=== PATIENT | female | born 1970 | race Caucasian/White ===

== ENCOUNTER 2018-04-25 20:32 | Inpatient (IN) | payer MEDICAID ==
[~2018-04-25] VITALS: Ht 157.5 cm; Wt 95.7 kg
[2018-04-25 21:19] LABS: UA SPECIFIC GRAVITY 1.015 (1.005-1.035); microscopic required? YES; urine erythrocyte 2+ (NEGATIVE)
[2018-04-25 21:30] LABS: PLATELET COUNT 478 x10^3mcL (130-400); RED CELL DISTRIBUTION WIDTH 22.9 % (11.5-14.5)
[2018-04-25 21:34] LABS: CALCIUM 7.5 mg/dL (8.5-10.1); CARBON DIOXIDE 22.4 mmol/L (21-32); CHLORIDE SERUM 103 mmol/L (98-107); CREATININE SERUM 0.9 mg/dL (0.6-1.0); GFR1 > 60 mL/min; GLUCOSE SERUM 149 mg/dL (74-106); POTASSIUM SERUM 4.6 mmol/L (3.5-5.1); SODIUM SERUM 133 mmol/L (136-145)
[2018-04-25 21:38] LABS: ALKALINE PHOSPHATASE 77 U/L (46-116); ALT/SGPT 13 U/L (14-59); AST/SGOT 16 U/L (15-37); BILIRUBIN TOTAL 0.1 mg/dL (0.20-1.00); LIPASE 98 IU/L (73-393)
[2018-04-25 21:49] LABS: ALBUMIN 1.9 g/dL (3.4-5.0); TOTAL PROTEIN, SERUM 5.3 g/dL (6.4-8.2)
[2018-04-25] MEDS ORDERED: HYDROCHLOROTHIA25 MG PO (22:06)
[2018-04-25] MEDS ORDERED: METFORMIN HCL1000 MG PO (22:06)
[2018-04-25] MEDS ORDERED: NATURAL IRON65 MG PO (22:07)
[2018-04-25 22:08] LABS: BAND NEUTROPHIL 3 % (0-10); METAMYELOCTE 1 % (0-2); MONOCYTE 7 % (0-7); SEGMENTED NEUTROPHILS 75 % (37-75)
[2018-04-25 22:11] LABS: PLATELET MORPHOLOGY PLATELETS NORMAL; ovalocyte/elliptocyte 1+; rbc morphology (normal/abnorm) ABNORMAL (NORMAL)
[2018-04-25 22:26] LABS: AMPHETAMINE QUAL UR NONE DETECTED (See below); HDL CHOLESTEROL 39 mg/dL (40-60); MAGNESIUM 2.4 mg/dL (1.8-2.4); PHOSPHOROUS 4.4 mg/dL (2.5-4.9)
[2018-04-25 22:31] LABS: CHOLESTEROL 204 mg/dL (<200); CHOLESTEROL/HDL RATIO 5.2; TRIGLYCERIDES 434 mg/dL (<150)
[2018-04-25 22:35] LABS: T3 TOTAL 1.3 ng/mL
[2018-04-25 22:53] LABS: FREE T4 1.08 ng/dL (0.76-1.46); FREE THYROXINE INDEX 2.7 ug/dL (1.4-4.5); T4(THYROXINE) 7.8 ug/dL (4.7-13.3)
[2018-04-25 23:30] VITALS: BP 160/120; BP 160/73
[2018-04-26] VITALS (13 sets, daily range): BP systolic 122–184; BP diastolic 65–93
[2018-04-26] MEDS ORDERED: HYDROCHLOROTHIA25 MG PO (02:57)
[2018-04-26 07:46] LABS: CALCIUM 7.3 mg/dL (8.5-10.1); CHLORIDE SERUM 108 mmol/L (98-107); GFR1 > 60 mL/min; GLUCOSE SERUM 127 mg/dL (74-106); IRON 32 ug/dL (50-170); POTASSIUM SERUM 4.6 mmol/L (3.5-5.1); SODIUM SERUM 137 mmol/L (136-145); TOTAL IRON BINDING CAPACITY 229 ug/dL (250-450)
[2018-04-26 08:09] LABS: BASOPHIL % 0.5 % (0-2); PLATELET COUNT 383 x10^3mcL (130-400)
[2018-04-26 08:14] LABS: RED CELL DISTRIBUTION WIDTH 20.9 % (11.5-14.5)
[2018-04-26 08:37] LABS: rbc morphology (normal/abnorm) ABNORMAL (NORMAL)
[2018-04-26 10:19] LABS: RED BLOOD CELLS 1.99 M/mm3 (4.10-5.10)
[2018-04-26 23:56] LABS: BASOPHIL % 0.5 % (0-2); PLATELET COUNT 379 x10^3mcL (130-400)
[2018-04-26 23:58] LABS: RED CELL DISTRIBUTION WIDTH 18.2 % (11.5-14.5)
[2018-04-27] VITALS (11 sets, daily range): BP systolic 139–188; BP diastolic 76–87
[2018-04-27 06:57] LABS: BASOPHIL % 0.6 % (0-2); PLATELET COUNT 380 x10^3mcL (130-400)
[2018-04-27 07:06] LABS: RED CELL DISTRIBUTION WIDTH 18.1 % (11.5-14.5)
[2018-04-27 07:12] LABS: CARBON DIOXIDE 25.3 mmol/L (21-32); CHLORIDE SERUM 109 mmol/L (98-107); CREATININE SERUM 0.9 mg/dL (0.6-1.0); GFR1 > 60 mL/min; GLUCOSE SERUM 131 mg/dL (74-106); POTASSIUM SERUM 4.2 mmol/L (3.5-5.1); SODIUM SERUM 139 mmol/L (136-145)
[2018-04-27] MEDS ORDERED: COLACE100 MG PO (12:46)
[2018-04-27] MEDS ORDERED: ZESTRIL5 MG PO (17:03)
== END 2018-04-27 22:01 | disposition home or self-care (01) | DRG 532 ==
LOC: ED 20:32 → DU 21:41
PROVIDERS: Emergency Medicine; Family Medicine
PROC: 30233N1 Transfusion of Nonautologous Red Blood Cells into Peripheral Vein, Percutaneous Approach (ICD-10-PCS; principal; 2018-04-26)
DX: D25.9 Leiomyoma of uterus, unspecified (principal); N17.0 Acute kidney failure with tubular necrosis; E43 Unspecified severe protein-calorie malnutrition; E87.1 Hypo-osmolality and hyponatremia; D50.0 Iron deficiency anemia secondary to blood loss (chronic); E11.9 Type 2 diabetes mellitus without complications; I10 Essential (primary) hypertension; I16.0 Hypertensive urgency; R60.9 Edema, unspecified; R80.9 Proteinuria, unspecified; Z79.84 Long term (current) use of oral hypoglycemic drugs; Z86.718 Personal history of other venous thrombosis and embolism; Z98.51 Tubal ligation status
CPT/HCPCS: 83880; 84439; C9113; J1940; J3490; J7030; J7040; P9016; Q0092; Q0163

== ENCOUNTER 2018-05-16 21:31 | Emergency (ER) | payer MEDICAID ==
[~2018-05-16] VITALS: Ht 157.5 cm; Wt 94.1 kg
[~2018-05-16 21:31] MED LIST: COLACE100 MG PO; HYDROCHLOROTHIA25 MG PO; METFORMIN HCL1000 MG PO; NATURAL IRON65 MG PO; ZESTRIL5 MG PO
[2018-05-16 21:36] VITALS: Ht 157.5 cm; Wt 94.1 kg
[2018-05-16 23:01] VITALS: BP 160/91
== END 2018-05-16 23:01 | disposition home or self-care (01) ==
LOC: ED 21:31
DX: I10 Essential (primary) hypertension (principal); F43.0 Acute stress reaction; E78.00 Pure hypercholesterolemia, unspecified
CPT/HCPCS: J3490

== ENCOUNTER 2018-06-10 18:47 | Inpatient (IN) | payer MEDICAID ==
[~2018-06-10] VITALS: Ht 157.5 cm; Wt 94.8 kg
[2018-06-10 19:07] VITALS: Ht 157.5 cm; Wt 94.8 kg
[2018-06-10 20:36] LABS: PLATELET COUNT 370 x10^3mcL (130-400)
[2018-06-10 20:46] LABS: BILIRUBIN TOTAL 0.1 mg/dL (0.20-1.00); CALCIUM 7.9 mg/dL (8.5-10.1); CARBON DIOXIDE 23.5 mmol/L (21-32); CREATININE SERUM 1.2 mg/dL (0.6-1.0); POTASSIUM SERUM 3.5 mmol/L (3.5-5.1)
[2018-06-10 20:48] LABS: ALBUMIN 1.7 g/dL (3.4-5.0); TOTAL PROTEIN, SERUM 4.8 g/dL (6.4-8.2)
[2018-06-10 21:09] LABS: RED CELL DISTRIBUTION WIDTH 15.8 % (11.5-14.5)
[2018-06-10 21:17] LABS: BAND NEUTROPHIL 0 % (0-10); BASOPHIL 0 % (0-2); MONOCYTE 7 % (0-7); SEGMENTED NEUTROPHILS 76 % (37-75); rbc morphology (normal/abnorm) ABNORMAL (NORMAL)
[2018-06-10 21:56] LABS: microscopic required? YES; urine erythrocyte 3+ (NEGATIVE)
[2018-06-10 22:19] LABS: AMPHETAMINE QUAL UR NONE DETECTED (See below)
[2018-06-10 22:35] LABS: CHOLESTEROL/HDL RATIO 3.8; MAGNESIUM 2.2 mg/dL (1.8-2.4); PHOSPHOROUS 6.6 mg/dL (2.5-4.9); T3 TOTAL 1.11 ng/mL
[2018-06-10 22:42] LABS: FREE T4 1.07 ng/dL (0.76-1.46); FREE THYROXINE INDEX 2.7 ug/dL (1.4-4.5); T4(THYROXINE) 7.6 ug/dL (4.7-13.3)
[2018-06-10 22:49] VITALS: BP 180/81
[2018-06-11 04:59] VITALS: BP 168/75
[2018-06-11 06:09] LABS: BASOPHIL % 0.7 % (0-2); PLATELET COUNT 354 x10^3mcL (130-400); RED CELL DISTRIBUTION WIDTH 13.6 % (11.5-14.5)
[2018-06-11 06:20] LABS: CALCIUM 7.9 mg/dL (8.5-10.1); CARBON DIOXIDE 22.2 mmol/L (21-32); CHLORIDE SERUM 98 mmol/L (98-107); GFR1 > 60 mL/min; GLUCOSE SERUM 138 mg/dL (74-106); MAGNESIUM 2.3 mg/dL (1.8-2.4); PHOSPHOROUS 6.3 mg/dL (2.5-4.9); POTASSIUM SERUM 3.7 mmol/L (3.5-5.1); SODIUM SERUM 128 mmol/L (136-145)
[2018-06-11 08:05] VITALS: BP 154/82
[2018-06-11 12:01] VITALS: BP 147/79
[2018-06-11 16:41] VITALS: BP 101/60
[2018-06-11 16:43] VITALS: BP 150/67
[2018-06-11 21:20] VITALS: BP 160/79
[2018-06-11 23:18] LABS: BASOPHIL % 0.5 % (0-2); PLATELET COUNT 355 x10^3mcL (130-400)
[2018-06-11 23:27] LABS: RED CELL DISTRIBUTION WIDTH 14.8 % (11.5-14.5)
[2018-06-12 05:06] VITALS: BP 152/67
[2018-06-12 06:36] LABS: CALCIUM 7.6 mg/dL (8.5-10.1); CARBON DIOXIDE 22.2 mmol/L (21-32); CHLORIDE SERUM 107 mmol/L (98-107); CREATININE SERUM 0.9 mg/dL (0.6-1.0); GFR1 > 60 mL/min; GLUCOSE SERUM 134 mg/dL (74-106); MAGNESIUM 1.9 mg/dL (1.8-2.4); PHOSPHOROUS 4.5 mg/dL (2.5-4.9); POTASSIUM SERUM 3.8 mmol/L (3.5-5.1); SODIUM SERUM 137 mmol/L (136-145)
[2018-06-12 06:39] LABS: BASOPHIL % 0.6 % (0-2); PLATELET COUNT 345 x10^3mcL (130-400)
[2018-06-12 07:06] LABS: RED CELL DISTRIBUTION WIDTH 15.2 % (11.5-14.5)
[2018-06-12 08:00] VITALS: BP 149/70
[2018-06-12 12:11] VITALS: BP 174/82
[2018-06-12 16:29] VITALS: BP 174/66
[2018-06-12 20:05] VITALS: BP 163/69
[2018-06-12 20:14] LABS: BASOPHIL % 0.5 % (0-2); PLATELET COUNT 360 x10^3mcL (130-400)
[2018-06-12 22:18] VITALS: BP 145/72
[2018-06-13] VITALS (7 sets, daily range): BP systolic 126–184; BP diastolic 75–87
[2018-06-13 03:51] LABS: BASOPHIL % 0.9 % (0-2); PLATELET COUNT 402 x10^3mcL (130-400); RED CELL DISTRIBUTION WIDTH 14.4 % (11.5-14.5)
[2018-06-13 04:08] LABS: CARBON DIOXIDE 26.1 mmol/L (21-32); CHLORIDE SERUM 103 mmol/L (98-107); GFR1 > 60 mL/min; GLUCOSE SERUM 137 mg/dL (74-106); MAGNESIUM 1.7 mg/dL (1.8-2.4); PHOSPHOROUS 4.8 mg/dL (2.5-4.9); POTASSIUM SERUM 3.4 mmol/L (3.5-5.1); SODIUM SERUM 128 mmol/L (136-145)
[2018-06-14] VITALS (7 sets, daily range): BP systolic 134–195; BP diastolic 76–93
[2018-06-14 06:21] LABS: CHLORIDE SERUM 108 mmol/L (98-107); GFR1 > 60 mL/min; GLUCOSE SERUM 133 mg/dL (74-106); MAGNESIUM 1.9 mg/dL (1.8-2.4); PHOSPHOROUS 4.9 mg/dL (2.5-4.9); POTASSIUM SERUM 3.6 mmol/L (3.5-5.1); SODIUM SERUM 140 mmol/L (136-145)
[2018-06-14 06:27] LABS: BASOPHIL % 0.4 % (0-2); PLATELET COUNT 387 x10^3mcL (130-400)
[2018-06-14 06:36] LABS: RED CELL DISTRIBUTION WIDTH 15.4 % (11.5-14.5)
[2018-06-15 05:48] VITALS: BP 135/65
[2018-06-15 08:25] VITALS: BP 138/60
[2018-06-15 09:41] LABS: CALCIUM 8.3 mg/dL (8.5-10.1); CARBON DIOXIDE 22.5 mmol/L (21-32); CREATININE SERUM 1.1 mg/dL (0.6-1.0); POTASSIUM SERUM 4.1 mmol/L (3.5-5.1)
[2018-06-15 09:59] LABS: BASOPHIL % 0.7 % (0-2)
[2018-06-15 10:09] LABS: PLATELET COUNT 455 x10^3mcL (130-400); RED CELL DISTRIBUTION WIDTH 16.1 % (11.5-14.5)
[2018-06-15] MEDS ORDERED: LIPI10 PO (13:09)
[2018-06-15] MEDS ORDERED: ZES20 PO (13:09)
[2018-06-15 13:11] VITALS: BP 178/93
[2018-06-15] MEDS ORDERED: COUMADIN3 MG PO (13:11)
[2018-06-15 14:35] VITALS: BP 151/72
[2018-06-15 14:44] VITALS: BP 151/72
== END 2018-06-15 15:51 | disposition home or self-care (01) | DRG 532 ==
LOC: ED 18:47 → DU 21:25
PROVIDERS: Emergency Medicine; Family Medicine; Internal Medicine
DX: N92.1 Excessive and frequent menstruation with irregular cycle (principal); N17.0 Acute kidney failure with tubular necrosis; E43 Unspecified severe protein-calorie malnutrition; I82.412 Acute embolism and thrombosis of left femoral vein; E83.39 Other disorders of phosphorus metabolism; D68.69 Other thrombophilia; D62 Acute posthemorrhagic anemia; D25.9 Leiomyoma of uterus, unspecified; E87.1 Hypo-osmolality and hyponatremia; R80.9 Proteinuria, unspecified; E11.9 Type 2 diabetes mellitus without complications; I10 Essential (primary) hypertension; E78.5 Hyperlipidemia, unspecified; Z86.718 Personal history of other venous thrombosis and embolism; Z79.84 Long term (current) use of oral hypoglycemic drugs
CPT/HCPCS: 82962; 83880; 84439; J1644; J1650; J3490; J7030; J7040; J7050; P9016; Q0092; Q0163

== ENCOUNTER 2018-08-06 21:23 | Inpatient (IN) | payer MEDICAID ==
[~2018-08-06] VITALS: Ht 157.5 cm; Wt 95.7 kg
[~2018-08-06 21:23] MED LIST changes: +COUMADIN3 MG PO; +LIPI10 PO; +ZES20 PO
[2018-08-06 21:25] VITALS: Ht 157.5 cm; Wt 95.7 kg
[2018-08-06 22:14] LABS: BASOPHIL % 0.3 % (0-2); PLATELET COUNT 397 x10^3mcL (130-400)
[2018-08-06 22:24] LABS: RED CELL DISTRIBUTION WIDTH 15.2 % (11.5-14.5)
[2018-08-06 22:28] LABS: CALCIUM 8.1 mg/dL (8.5-10.1); CARBON DIOXIDE 21.2 mmol/L (21-32); CREATININE SERUM 1.1 mg/dL (0.6-1.0); POTASSIUM SERUM 3.8 mmol/L (3.5-5.1)
[2018-08-06 22:33] LABS: BILIRUBIN TOTAL 0.1 mg/dL (0.20-1.00)
[2018-08-06 22:36] LABS: ALBUMIN 1.9 g/dL (3.4-5.0); TOTAL PROTEIN, SERUM 5.3 g/dL (6.4-8.2)
[2018-08-07] VITALS (8 sets, daily range): BP systolic 126–155; BP diastolic 48–80
[2018-08-07] MEDS ORDERED: LISINOPRIL40 MG PO (00:23)
[2018-08-07] MEDS ORDERED: DOK100 MG PO (00:24)
[2018-08-07] MEDS ORDERED: LIPI10 PO (00:24)
[2018-08-07] MEDS ORDERED: HYDROCHLOROTHIA50 MG PO (00:24)
[2018-08-07] MEDS ORDERED: METOPROLOL TART25 M1 PO (00:25)
[2018-08-07] MEDS ORDERED: METFORMIN HCL1000 MG PO (00:25)
[2018-08-07] MEDS ORDERED: PROVERA10 MG PO (00:26)
[2018-08-07] MEDS ORDERED: COUMADIN6 MG PO (00:26)
[2018-08-07] MEDS ORDERED: NOR10 PO (00:27)
[2018-08-07 00:55] LABS: CHOLESTEROL/HDL RATIO 5.2; MAGNESIUM 1.9 mg/dL (1.8-2.4); PHOSPHOROUS 4.7 mg/dL (2.5-4.9)
[2018-08-07 01:03] LABS: FREE T4 1.27 ng/dL (0.76-1.46); FREE THYROXINE INDEX 3.6 ug/dL (1.4-4.5); T4(THYROXINE) 10.2 ug/dL (4.7-13.3)
[2018-08-07 01:16] LABS: microscopic required? YES; urine erythrocyte 3+ (NEGATIVE)
[2018-08-07 01:24] LABS: AMPHETAMINE QUAL UR NONE DETECTED (See below)
[2018-08-07 01:43] LABS: T3 TOTAL 1.05 ng/mL
[2018-08-07 06:55] LABS: CALCIUM 8.1 mg/dL (8.5-10.1); CARBON DIOXIDE 21.2 mmol/L (21-32); CREATININE SERUM 1.1 mg/dL (0.6-1.0); POTASSIUM SERUM 4.3 mmol/L (3.5-5.1)
[2018-08-07 07:15] LABS: BASOPHIL % 0.4 % (0-2); PLATELET COUNT 341 x10^3mcL (130-400)
[2018-08-07 07:18] LABS: RED CELL DISTRIBUTION WIDTH 15.1 % (11.5-14.5)
[2018-08-07 07:57] LABS: rbc morphology (normal/abnorm) ABNORMAL (NORMAL)
[2018-08-07 23:35] LABS: BASOPHIL % 0.3 % (0-2); PLATELET COUNT 331 x10^3mcL (130-400)
[2018-08-07 23:42] LABS: RED CELL DISTRIBUTION WIDTH 15.4 % (11.5-14.5)
[2018-08-08 05:29] VITALS: BP 111/51
[2018-08-08 06:31] LABS: BASOPHIL % 0.2 % (0-2); PLATELET COUNT 332 x10^3mcL (130-400)
[2018-08-08 06:57] LABS: CALCIUM 7.9 mg/dL (8.5-10.1); CARBON DIOXIDE 22.9 mmol/L (21-32); CHLORIDE SERUM 108 mmol/L (98-107); GFR1 > 60 mL/min; GLUCOSE SERUM 137 mg/dL (74-106); MAGNESIUM 1.8 mg/dL (1.8-2.4); PHOSPHOROUS 4.8 mg/dL (2.5-4.9); POTASSIUM SERUM 4.2 mmol/L (3.5-5.1); SODIUM SERUM 141 mmol/L (136-145)
[2018-08-08 07:01] LABS: RED CELL DISTRIBUTION WIDTH 15.6 % (11.5-14.5)
[2018-08-08 07:52] VITALS: BP 134/97
[2018-08-08 11:59] VITALS: BP 141/74
[2018-08-08 12:51] VITALS: BP 141/74
== END 2018-08-08 15:24 | disposition home or self-care (01) | DRG 532 ==
LOC: ED 21:23 → DU 08-07 00:10
PROVIDERS: Emergency Medicine; Internal Medicine
PROC: 30233N1 Transfusion of Nonautologous Red Blood Cells into Peripheral Vein, Percutaneous Approach (ICD-10-PCS; principal; 2018-08-07)
DX: N93.8 Other specified abnormal uterine and vaginal bleeding (principal); N17.0 Acute kidney failure with tubular necrosis; E43 Unspecified severe protein-calorie malnutrition; D62 Acute posthemorrhagic anemia; E87.1 Hypo-osmolality and hyponatremia; E11.65 Type 2 diabetes mellitus with hyperglycemia; D25.9 Leiomyoma of uterus, unspecified; I16.0 Hypertensive urgency; R80.9 Proteinuria, unspecified; D72.829 Elevated white blood cell count, unspecified; E78.5 Hyperlipidemia, unspecified; Z68.35 Body mass index [BMI] 35.0-35.9, adult; Z79.01 Long term (current) use of anticoagulants; Z79.84 Long term (current) use of oral hypoglycemic drugs; Z86.718 Personal history of other venous thrombosis and embolism
CPT/HCPCS: 82962; 83880; 84439; 90658; J7030; J7050; P9016; Q0092; Q0163

== ENCOUNTER 2018-08-22 02:59 | Emergency (ER) | payer MEDICAID ==
[~2018-08-22] VITALS: Ht 154.9 cm; Wt 91.2 kg
[~2018-08-22 02:59] MED LIST changes: +COUMADIN6 MG PO; +DOK100 MG PO; +HYDROCHLOROTHIA50 MG PO; +LISINOPRIL40 MG PO; +METOPROLOL TART25 M1 PO; +NOR10 PO; +PROVERA10 MG PO
[2018-08-22 03:11] VITALS: Ht 154.9 cm; Wt 91.2 kg
[2018-08-22 04:11] LABS: CALCIUM 8.5 mg/dL (8.5-10.1); CARBON DIOXIDE 24.1 mmol/L (21-32); CREATININE SERUM 1.2 mg/dL (0.6-1.0); POTASSIUM SERUM 4.3 mmol/L (3.5-5.1)
[2018-08-22 04:14] LABS: BASOPHIL % 0.8 % (0-2)
[2018-08-22 04:15] LABS: PLATELET COUNT 671 x10^3mcL (130-400); RED CELL DISTRIBUTION WIDTH 14.6 % (11.5-14.5)
[2018-08-22 04:26] LABS: ALBUMIN 1.7 g/dL (3.4-5.0); TOTAL PROTEIN, SERUM 5.9 g/dL (6.4-8.2)
[2018-08-22 04:37] LABS: BILIRUBIN TOTAL 0.1 mg/dL (0.20-1.00)
[2018-08-22 05:18] VITALS: BP 160/82
== END 2018-08-22 05:18 | disposition home or self-care (01) ==
LOC: ED 02:59
PROVIDERS: Emergency Medicine
DX: I10 Essential (primary) hypertension (principal); F41.9 Anxiety disorder, unspecified; D50.9 Iron deficiency anemia, unspecified; E78.00 Pure hypercholesterolemia, unspecified; E11.9 Type 2 diabetes mellitus without complications
CPT/HCPCS: 36415

== ENCOUNTER 2019-05-02 22:09 | Inpatient (IN) | payer MEDICAID ==
[~2019-05-02] VITALS: Ht 157.5 cm; Wt 93.9 kg
[2019-05-02 22:14] VITALS: Ht 157.5 cm; Wt 93.9 kg
--- NOTE | 2019-05-02 22:16 | NUR ---
PT SENT TO LOBBY TO WAIT FOR AVAILABLE BED. NO DISTRESS NOTED AT THIS TIME. PT ALERT AND ORIENTED
--- NOTE | 2019-05-03 00:57 | NUR ---
PT PRESENTS TO ED WITH C/O BODY SWELLING; ON ASSESSMENT SWELLING OBSERVED TO BLE, +2 PITTING EDEMA TO BILATERAL LOWER LEGS, PEDAL PULSES STRONG AND PALPABLE; NO SWELLING OBSERVED TO UPPER EXTREMITIES. SKIN W/D/I; PT AAOX4, GCS 15, RESP E/U, ABDOMEN SOFT/NONTENDER/NONDISTENDED, PT MOVES ALL EXTREMITIES. PT APPEARS IN NO DISTRESS AT THIS TIME, FAMILY AT BEDSIDE.
[2019-05-03 01:03] LABS: BASOPHIL % 0.6 % (0-2)
[2019-05-03 01:04] LABS: PLATELET COUNT 494 x10^3mcL (130-400); RED CELL DISTRIBUTION WIDTH 14.8 % (11.5-14.5)
--- NOTE | 2019-05-03 01:09 | NUR ---
MEDICATED PER MD ORDERS - SEE EMAR
[2019-05-03 01:10] LABS: CALCIUM 8.2 mg/dL (8.5-10.1); CARBON DIOXIDE 22.7 mmol/L (21-32); CREATININE SERUM 1.8 mg/dL (0.6-1.0); POTASSIUM SERUM 4.8 mmol/L (3.5-5.1)
[2019-05-03 01:15] LABS: BILIRUBIN TOTAL 0.16 mg/dL (0.20-1.00)
[2019-05-03 01:16] LABS: ALBUMIN 1.6 g/dL (3.4-5.0); TOTAL PROTEIN, SERUM 5.8 g/dL (6.4-8.2)
[2019-05-03] MEDS ORDERED: GLUCOTROL10 MG PO (02:05)
[2019-05-03] MEDS ORDERED: LISINOPRIL20 MG PO (02:06)
[2019-05-03] MEDS ORDERED: METOPROLOL TAR100 MG PO (02:07)
--- NOTE | 2019-05-03 02:10 | NUR ---
PATIENT SITTING UPRIGHT ON GURNEY- BREATHING E/U. NAD NOTED. WILL CONTINUE TO MONITOR.
--- NOTE | 2019-05-03 03:10 | NUR ---
PROVIDED REPORT TO SEVERIANO DEVLIN- CARRIE FOR FURTHER CARE OF PATIENT.
[2019-05-03 04:24] VITALS: BP 152/79
--- NOTE | 2019-05-03 04:44 | NUR ---
RECIEVED PT FROM ED VIA GURNEY. PT ARRIVED WITH FAMILY. AMBULATED BY SELF FROM [facility] TO BED. ADMITTED FOR ACUTE CHF AND ACUTE KIDNEY DISEASE. A/OX4, CALM AND COOPERATIVE. BLE 2+ EDEMA NOTED. BREATHING EVEN AND UNLABORED ON RA. VSS. NO ACUTE DISTRESS NOTED AT THIS TIME. ALL QUESTIONS AND CONCERNS ADDRESSED. ORIENTED TO UNIT AND DEVICES. BED AT LOWEST POSTION. CALL LIGHT WITHIN REACH. WILL CONTINUE TO MONITOR.
[2019-05-03 05:49] LABS: BASOPHIL % 0.7 % (0-2)
[2019-05-03 06:02] LABS: PLATELET COUNT 455 x10^3mcL (130-400); RED CELL DISTRIBUTION WIDTH 15.8 % (11.5-14.5)
[2019-05-03 06:07] LABS: CALCIUM 8.1 mg/dL (8.5-10.1); CARBON DIOXIDE 22.7 mmol/L (21-32); CREATININE SERUM 1.7 mg/dL (0.6-1.0); MAGNESIUM 2.4 mg/dL (1.8-2.4); PHOSPHOROUS 4.6 mg/dL (2.5-4.9); POTASSIUM SERUM 3.9 mmol/L (3.5-5.1)
[2019-05-03 06:08] LABS: CHOLESTEROL/HDL RATIO 5.4
[2019-05-03 06:10] LABS: T3 TOTAL 1.2 ng/mL
[2019-05-03 06:13] LABS: FREE T4 1.05 ng/dL (0.76-1.46); FREE THYROXINE INDEX 3.3 ug/dL (1.4-4.5); T4(THYROXINE) 9.2 ug/dL (4.7-13.3)
--- NOTE | 2019-05-03 07:20 | NUR ---
RECEIVED BEDSIDE REPORT, PATIENT SLEEPING BUT EASILY ARROUSABLE, A/OX4 ABLE TO MAKE NEEDS KNOWN AND FOLLOW COMMANDS. DENIES HEADACHE OR CHEST PAIN. TELE [address] SR[address] LUNGS CTA, NO RESP DISTRESS ON RA. BREATHING E/U. GENERALIZED TRACE EDEMA NOTED W/ 2+ EDEMA TO BLE'S. PERIPHERAL PUSLES PALPABLE. BOWEL SOUNDS ACTIVE. DENIES DISCOMFORT WHEN VOIDING. SKIN INTACT. IV ACCESS TO LAC SITE WNL. CALL LIGHT WITHIN REACH, BOARD UPDATED.
[2019-05-03 08:39] VITALS: BP 149/84; BP 99/47
[2019-05-03 08:46] LABS: AMPHETAMINE QUAL UR NONE DETECTED (See below)
[2019-05-03 08:49] LABS: microscopic required? YES; urine erythrocyte 1+ (NEGATIVE)
--- NOTE | 2019-05-03 10:23 | NUR ---
PATIENT RESTING IN BED, SNORING. BREATHING E/U, NO SIGN OF ACUTE DISTRESS. WILL CONT TO MONITOR.
--- NOTE | 2019-05-03 10:30 | NUR ---
ECHOCARDIOGRAM PENDING-IN BATHROOM
--- NOTE | 2019-05-03 11:06 | NUR ---
ECHO IN PROGRESS AT BEDSIDE.
[2019-05-03 12:34] VITALS: BP 146/78
--- NOTE | 2019-05-03 14:11 | NUR ---
Discount pharmacy card and list to low cost medical clinics given to patient by Wilfred Garza.
--- NOTE | 2019-05-03 15:45 | NUR ---
PATIENT TRANSFERRED TO [facility]. TELE MONITOR RETURNED TO [facility].
[2019-05-03 16:53] VITALS: BP 124/67
--- NOTE | 2019-05-03 18:22 | NUR ---
PATIENT TOLERATED DINNER MEAL WELL. GENERALIZED TRACE SWELLING NOTED W/ REDUCED SWELLING TO BLE'S, 1+ EDEMA. PATIENT DENIES PAIN OR DISCOMFORT, RESP EVEN/UNLABORED. SCD'S IN PLACE. IV SITE WNL. NO OTHER SIGNIFICANT CHANGE IN CONDITION. WILL CONT TO MONITOR AND ENDORSE TO NOC NURSE.
--- NOTE | 2019-05-03 19:37 | NUR ---
PT. AWAKE, ALERT, SITTING UP IN BED. ORIENTED X4. DENIES HEADACHE OR DIZZINESS. BREATH SOUNDS CLEAR THROUGHOUT LUNG IYER, RESP. EVEN, UNLABORED. NO SOB NOTED. PT. ON RA. ABD. SOFT AND ROUND, BOWEL SOUNDS ACTIVE. DENIES ABD. PAIN, DENIES NAUSEA. IV ALBUMIN INFUSING, SITE INTACT. BLE W/ +2 EDEMA, NON-PITTING. PEDAL PULSES MODERATE. DENIES PAIN IN BLE. SON AT BEDSIDE. CALL LIGHT WITHIN REACH.
[2019-05-03 20:24] VITALS: BP 109/70
--- NOTE | 2019-05-04 00:33 | NUR ---
PT. APPEARS TO BE SLEEPING AT THIS TIME. EYES CLOSED. NO COMPLAINTS THUS FAR. IV SITE INTACT. CALL LIGHT WITHIN REACH.
--- NOTE | 2019-05-04 05:15 | NUR ---
PT. SLEPT WELL THROUGHOUT THE NIGHT. NO COMPLAINTS. IV SITE REMAINS INTACT. NO INCREASE IN EDEMA TO EXTREMITIES,BLE, NOTED. CALL LIGHT WITHIN REACH.
[2019-05-04 05:29] VITALS: BP 110/53
[2019-05-04 06:58] LABS: BASOPHIL % 0.7 % (0-2); PLATELET COUNT 355 x10^3mcL (130-400)
[2019-05-04 07:15] LABS: RED CELL DISTRIBUTION WIDTH 15.3 % (11.5-14.5)
[2019-05-04 07:16] LABS: CARBON DIOXIDE 22.9 mmol/L (21-32); CREATININE SERUM 1.8 mg/dL (0.6-1.0); MAGNESIUM 2.2 mg/dL (1.8-2.4); PHOSPHOROUS 4.9 mg/dL (2.5-4.9); POTASSIUM SERUM 3.8 mmol/L (3.5-5.1)
[2019-05-04 07:18] LABS: ALBUMIN 1.9 g/dL (3.4-5.0)
--- NOTE | 2019-05-04 07:34 | NUR ---
HGB 7.0, HCT 20. DR. MCNAMARA MADE AWARE. NO FURTHER ORDERS AT THIS TIME. NO S/S OF ACUTE DISTRESS. NO S/S OF BLEEDING AT THIS TIME. VS STABLE. PT SITTING UP EATING BREAKFAST. NO PAL. NO DIZZINESS. NO N/V. NO SOB ON ROOM AIR. NO CHEST PAIN. CALM/COOPERATIVE. MED SURG. IV WNL TO LAC, NO REDNESS, NO SWELLING, NO INFILTRATION TO SITE. SALINE LOCKED. BED IN LOW POSITION. CALL LIGHT WITHIN REACH. INSTRUCTED TO USE CALL LIGHT TO CALL FOR ASSISTANCE PRN. VERBALIZED UNDERSTANDING. WILL CONTINUE TO MONITOR.
[2019-05-04 08:01] VITALS: BP 110/62
[2019-05-04 08:56] LABS: IRON 29 ug/dL (50-170); TOTAL IRON BINDING CAPACITY 143 ug/dL (250-450)
--- NOTE | 2019-05-04 12:04 | NUR ---
PT LAYING IN BED. AA/OX4. NO COMPLAINT OF PAIN. NO SOB ON ROOM AIR. LUE NONPITTING SWELLING NOTED. ELEVATED WITH PILLOW. BLE ELEVATED WITH PILLOW. DENIES CHEST PAIN. CALM/COOPERATIVE. NO PAL. NO DIZZINESS. IV WNL, SALINE LOCKED. BED IN LOW POSITION. CALL LIGHT WITHIN REACH. BLOOD SUGAR WNL. WILL CONTINUE TO MONITOR.
[2019-05-04 12:06] VITALS: BP 118/60
[2019-05-04 14:06] LABS: RED BLOOD CELLS 2.17 M/mm3 (4.10-5.10)
[2019-05-04 16:15] VITALS: BP 119/71
--- NOTE | 2019-05-04 18:21 | NUR ---
PT LAYING IN BED. AA/OX4. DENIES SOB ON ROOM AIR. DENIES CHEST PAIN. LUE ELEVATED. BLE ELEVATED. NO S/S OF ACUTE DISTRESS. NO N/V. NO DIZZINESS. NO PAL. IV WNL TO LAC, SALINE LOCKED. MEDSURG. BED IN LOW POSITION. CALL LIGHT WITHIN REACH. WILL ENDORSE TO ONCOMING SHIFT.
--- NOTE | 2019-05-04 20:00 | NUR ---
RECEIVED PT IN BED, RESTING QUIETLY. A/O X4. DENIES HEADACHE/DIZZINESS. RESP. EVEN AND UNLABORED. ON ROOM AIR, DENIES SOB, NO ACUTE DISTRESS NOTED. DENIES CP OR ANY DISCOMFORT AT THIS TIME. HL TO LAC, INTACT AND PATENT. AFEBRILE AND VITAL SIGNS STABLE. NO COMPLAINTS NOTED AT THIS TIME. ASSISTED WITH HS CARE. CALL LIGHT WITHIN REACH . WILL CONTINUE TO MONITOR.
[2019-05-04 20:38] VITALS: BP 144/68
--- NOTE | 2019-05-04 23:31 | NUR ---
NO COMPLAINTS NOTED AT THIS TIME. DUE MEDS GIVEN ORDERED, PIETER. WELL. CALL LIGHT WITHIN REACH. WILL CONTINUE TO MONITOR.
--- NOTE | 2019-05-05 02:08 | NUR ---
NO COMPLAINTS NOTED AT THIS TIME . RESTING QUIETLY, WITH EYES CLOSED, APPEARS ASLEEP, EASILY AROUSABLE. RESP EVEN AND UNLABORED. NO ACUTE DISTRESS NOTED. CALL LIGHT WITHIN REACH. WILL CONTINUE TO MONITOR.
[2019-05-05 05:48] VITALS: BP 134/67
[2019-05-05 05:53] VITALS: BP 134/67
--- NOTE | 2019-05-05 06:10 | NUR ---
AFEBRILE AND VITAL SIGNS STABLE.RESP. EVEN AND UNLABORED. NO ACUTE DISTRESS NOTED. DUE MEDS GIVEN ORDERED, PIETER. WELL. NO SIGNIFICANT CHANGE NOTED IN PT,S CONDITION. VOIDING FREELY. HL INTACT AND PATENT. NO COMPLAINTS NOTED. CALL LIGHT WITHIN REACH. WILL CONTINUE TO MONITOR.
[2019-05-05 06:43] LABS: BASOPHIL % 0.4 % (0-2); PLATELET COUNT 370 x10^3mcL (130-400)
[2019-05-05 06:57] LABS: CALCIUM 7.8 mg/dL (8.5-10.1); CARBON DIOXIDE 23.6 mmol/L (21-32); POTASSIUM SERUM 3.2 mmol/L (3.5-5.1)
--- NOTE | 2019-05-05 07:19 | NUR ---
REPORT TAKEN FROM COMMUNITY RELATIONS OFFICER NURSE, PT AWAKE AND ALERT IN NAD, DENIED PAIN OR NEEDS AT THIS TIME, WILL CONTINUE TO MONITOR.
[2019-05-05 07:33] LABS: RED CELL DISTRIBUTION WIDTH 15.7 % (11.5-14.5)
[2019-05-05 08:58] VITALS: BP 130/65
--- NOTE | 2019-05-05 09:44 | NUR ---
PT REPORTS LEFT ARM PAIN S/P START OF POTASSIUM CHOLRIDE IV TO LEFT AC, NO SWELLING, OR ERYTHEMA OBSEVED AT IV SITE. WILL CONTINUE TO MONITOR.
[2019-05-05 16:26] VITALS: BP 130/65
[2019-05-05 17:02] VITALS: BP 125/67
[2019-05-05] MEDS ORDERED: LANTUS SOLOS100 U/M1 SQ (17:12)
[2019-05-05] MEDS ORDERED: HUMALOG100 U/ML SC (17:14)
--- NOTE | 2019-05-05 17:29 | NUR ---
PT ADVISED THAT SHE WILL BE PRESCRIBED SQ LANTUS UPON DISCHARGE. PT REPORT SHE IS ABLE TO GIVE SQ INJECTION TO HERSELF AT HOME, I EDUCATED HER ON PROPER TECHNIQUE, SHE RETURNED DEMONSTRATION, AND ADMINISTERED BEFORE DINNER REGULAR INSULIN INJECTION TO HERSELF UNDER MY OBSERVATION. PT TOLERATED WELL, WILL CONTINUE TO MONITOR.
--- NOTE | 2019-05-05 18:31 | NUR ---
IV DC'D FROM LEFT AC WITH CATH INTACT, PT TOLERATED WELL, GAUZE AND COBAN APPLIED TO SITE. PT SIGNED DC PAPERWORK, DOCUMENTS ADDED TO PT'S CHART. PT GIVEN PRESCRIPTION IN HAND, VERBALIZED UNDERSTANDING OF MEDICATION INSTRUCTIONS, ALL QUESTIONS ANSWERED AT TIME OF DC, PT AMBULATORY TO EXIT WITH EMERGENCY SERVICES PROFESSIONAL.
[2019-05-06 14:07] LABS: COMPLEMENT C3 90 mg/dL (82-167); COMPLEMENT C4 29 mg/dL (14-44)
== END 2019-05-05 18:31 | disposition home or self-care (01) | DRG 469 ==
LOC: ED 22:09 → MU 05-03 01:44 → DU 05-03 01:44 → MU 05-03 15:51
PROVIDERS: Emergency Medicine; Internal Medicine; Internal Medicine Nephrology; ADMIT Internal Medicine
DX: N17.0 Acute kidney failure with tubular necrosis (principal); E43 Unspecified severe protein-calorie malnutrition; D68.69 Other thrombophilia; E11.22 Type 2 diabetes mellitus with diabetic chronic kidney disease; E11.65 Type 2 diabetes mellitus with hyperglycemia; E87.1 Hypo-osmolality and hyponatremia; I12.9 Hypertensive chronic kidney disease with stage 1 through stage 4 chronic kidney disease, or unspecified chronic kidney disease; N18.3 Chronic kidney disease, stage 3 (moderate); D25.9 Leiomyoma of uterus, unspecified; E02 Subclinical iodine-deficiency hypothyroidism; E78.5 Hyperlipidemia, unspecified; Z68.37 Body mass index [BMI] 37.0-37.9, adult; Z79.84 Long term (current) use of oral hypoglycemic drugs; Z86.718 Personal history of other venous thrombosis and embolism
CPT/HCPCS: 82962; 83880; 84439; G0378; J1940; J3480; J7030; P9047; Q0092